=== PATIENT | male | born 2000 | race Caucasian/White ===

== ENCOUNTER 2023-12-25 19:17 | Emergency (ER) | payer SELFPAY ==
[~2023-12-25] VITALS: Ht 182.9 cm; Wt 92.8 kg
[2023-12-25 22:51] VITALS: BP 145/84; TEMP 97.1; O2SAT 99
== END 2023-12-26 06:45 | disposition home or self-care (01) ==
LOC: M ED 19:17
DX: Z00.00 Encounter for general adult medical examination without abnormal findings (principal)

== ENCOUNTER 2024-11-28 22:03 | Emergency (ER) | payer OTHER ==
[~2024-11-28] VITALS: Ht 185.4 cm; Wt 87.3 kg
[2024-11-28 22:06] VITALS: BP 152/86; TEMP 99.3; O2SAT 99
[2024-11-28] MEDS: TETANUS/DIPHTH/ACEL. PERTUSSIS 0.5 ML SYR IM.IMMUN ONE (23:58)
[2024-11-29] MEDS ORDERED: IBUP600T42 PO (00:07)
[2024-11-29] MEDS: IBUPROFEN 600 MG TAB PO ONE (00:13)
== END 2024-11-29 00:21 | disposition home or self-care (01) ==
LOC: M ED 22:03
DX: T23.271A Burn of second degree of right wrist, initial encounter (principal); T31.0 Burns involving less than 10% of body surface; X15.0XXA Contact with hot stove (kitchen), initial encounter; Y92.9 Unspecified place or not applicable; Y93.9 Activity, unspecified; Y99.0 Civilian activity done for income or pay; F17.200 Nicotine dependence, unspecified, uncomplicated; F12.10 Cannabis abuse, uncomplicated; Z91.018 Allergy to other foods